=== PATIENT | female | born 1965 | race Caucasian/White ===

== ENCOUNTER 2023-03-12 12:56 | Outpatient (RCR) | payer MEDICAID | END 2023-03-16 | disposition home or self-care (01) | LOC: WSPT → PT.GENESIS 13:00 | DX: M17.11 Unilateral primary osteoarthritis, right knee (principal); Z96.651 Presence of right artificial knee joint ==

== ENCOUNTER 2023-04-14 15:45 | Outpatient (RCR) | payer OTHER | END 2023-04-16 | disposition home or self-care (01) | LOC: WSPT | DX: M17.11 Unilateral primary osteoarthritis, right knee (principal); Z96.651 Presence of right artificial knee joint ==